=== PATIENT | male | born 1980 | race Two or more races ===

== ENCOUNTER 2021-11-27 14:35 | Emergency (ER) | payer SELFPAY ==
[2021-11-27 15:52] LABS: CARBON DIOXIDE,CO2 27.3 mmol/L (21.0-32.0); POTASSIUM,K 3.5 mmol/L (3.5-5.1)
== END 2021-11-27 16:22 | disposition home or self-care (01) ==
LOC: MW.ED 14:35
DX: Z02.89 Encounter for other administrative examinations (principal); Z79.899 Other long term (current) drug therapy
CPT/HCPCS: 36415; 71045; 71045-26; 80053; 84484; 85025; 93005; 99283